=== PATIENT | female | born 1995 | race Caucasian/White ===

== ENCOUNTER 2019-03-12 02:34 | Observation (INO) | payer MEDICAID ==
[~2019-03-12] VITALS: Ht 147.3 cm; Wt 59.9 kg
== END 2019-03-12 04:15 | disposition home or self-care (01) ==
LOC: 8 EST LDRP 02:34
PROVIDERS: ADMIT Obstetrics & Gynecology; ATTEND Obstetrics & Gynecology
DX: O26.893 Other specified pregnancy related conditions, third trimester (principal); R10.30 Lower abdominal pain, unspecified; Z3A.38 38 weeks gestation of pregnancy
CPT/HCPCS: 99281; G0378

== ENCOUNTER 2022-03-28 09:28 | Emergency (ER) | payer MEDICAID ==
[~2022-03-28] VITALS: Ht 170.2 cm; Wt 50.0 kg
[2022-03-28 09:31] VITALS: BP 111/70
[2022-03-28] MEDS ORDERED: MORPHINE SULFATE 10 MG/ML CPJ IV ONE (10:00)
[2022-03-28] MEDS ORDERED: CEFTRIAXONE SODIUM 500 MG/VIAL IM NR (10:15)
[2022-03-28] MEDS ORDERED: MORPHINE SULFATE 4 MG/ML CPJ (NOT FOR IM USE) IV NR (10:30)
== END 2022-03-28 10:41 | disposition left against medical advice (07) ==
LOC: ER 09:28
DX: Z53.21 Procedure and treatment not carried out due to patient leaving prior to being seen by health care provider (principal)

== ENCOUNTER 2024-08-20 01:40 | Emergency (ER) | payer MEDICAID ==
[~2024-08-20] VITALS: Ht 152.4 cm; Wt 86.4 kg
[2024-08-20 01:54] VITALS: BP 114/80; PULSE 86; RESP 16; TEMP 98; O2SAT 100
[2024-08-20] MEDS ORDERED: IBUPROFEN 600MG TABLET PO ONE (03:15)
== END 2024-08-20 03:42 | disposition left against medical advice (07) ==
LOC: ER 01:40
DX: R51.9 Headache, unspecified (principal); R05.9 Cough, unspecified
CPT/HCPCS: 99281